=== PATIENT | female | born 1995 ===

== ENCOUNTER 2024-09-02 07:43 | Outpatient (CLI) | payer OTHER | END 2024-09-02 07:44 | disposition home or self-care (01) | LOC: PRENATAL 07:43 | PROVIDERS: ATTEND Obstetrics & Gynecology Maternal & Fetal Medicine | DX: O44.00 Complete placenta previa NOS or without hemorrhage, unspecified trimester (principal); Z3A.24 24 weeks gestation of pregnancy ==